=== PATIENT | male | born 1960 | race Caucasian/White ===

== ENCOUNTER 2018-08-15 20:46 | Emergency (ER) | payer OTHER ==
[2018-08-15 20:58] VITALS: BP 144/99; PULSE 82; TEMP 97.8; BMI 22.2
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
== END 2018-08-15 23:24 | disposition home or self-care (01) ==
LOC: FER 20:46
CPT/HCPCS: 70450-TC; 72125-TC; 99283-25